=== PATIENT | male | born 1955 | race Caucasian/White ===

== ENCOUNTER 2017-12-08 17:54 | Emergency (ER) | payer OTHER ==
--- NOTE | 2017-12-08 18:20 | PDOC ---
History of Present Illness - General History Source: Patient Exam Limitations: No Limitations - History of Present Illness Initial Comments: 12/08/17 18:43 The patient is a 62 year old male with a significant past medical history of prosthetic aortic valve and dual chamber pacemaker who was sent to the ED by his group therapy counselor for evaluation. Patient states he currently has a febrile illness with an associated cough for 3 days. Patient states the highest recorded temp was 101.4 F 2 days ago. He also reports a headache localized in the back of his head associated with present symptoms. He was assessed by his group therapy counselor earlier today who felt that he heard a new murmur. Napkin Band Wrapper requested patient to come into the ED for Chest XRay, CBC, blood cultures and ESR. Patient states he was recently outdoors and [place] where he got bitten by bugs. Patient also states his friend has similar febrile symptoms. Denies chest pain or shortness of breath. Denies rash. Denies nausea, vomiting, or diarrhea. Denies any other symptoms. Napkin Band Wrapper: Dr. Jorge A Cox <Jeffrey Stinson - Last Filed: 12/08/17 18:43> - General History Source: Patient Exam Limitations: No Limitations <Vanesa Kaur - Last Filed: 12/09/17 20:10> - General Chief Complaint: Cold Symptoms Stated Complaint: FEVER Time Seen by Provider: 12/08/17 18:19 Past History <Jeffrey Stinson - Last Filed: 12/08/17 18:43> <Vanesa Kaur - Last Filed: 12/09/17 20:10> - Past Medical History Allergies/Adverse Reactions: Allergies Allergy/AdvReac Type Severity Reaction Status Date / Time levofloxacin [From Levaquin] Allergy Fever Verified 12/08/17 17:56 Home Medications: Ambulatory Orders Aspirin [Aspirin Ec] 81 mg PO DAILY 01/27/17 Omeprazole 20 mg PO DAILY 01/27/17 Allopurinol 300 mg PO DAILY 12/08/17 Ramipril 1.25 mg PO DAILY 12/08/17 Review of Systems - Review of Systems Able to Perform ROS?: Yes Comments:: 12/08/17 18:43 CONSTITUTIONAL: + fever, headache Absent: diaphoresis, generalized weakness, malaise, loss of appetite HEENT: Absent: rhinorrhea, nasal congestion, throat pain, throat swelling, difficulty swallowing, mouth swelling, ear pain, eye pain, visual Changes CARDIOVASCULAR: Absent: chest pain, syncope, palpitations, irregular heart rate, lightheadedness , peripheral edema RESPIRATORY: + cough Absent: shortness of breath, dyspnea with exertion, orthopnea, wheezing, stridor , hemoptysis GASTROINTESTINAL: Absent: abdominal pain, abdominal distension, nausea, vomiting, diarrhea, constipation, melena, hematochezia GENITOURINARY: Absent: dysuria, frequency, urgency, hesitancy, hematuria, flank pain, genital pain MUSCULOSKELETAL: Absent: myalgia, arthralgia, joint swelling SKIN: Absent: rash, itching, pallor HEMATOLOGIC/IMMUNOLOGIC: Absent: easy bleeding, easy bruising, lymphadenopathy, frequent infections ENDOCRINE: Absent: unexplained weight gain, unexplained weight loss, heat intolerance, cold intolerance NEUROLOGIC: Absent: headache, focal weakness or paresthesias, dizziness, unsteady gait, seizure, mental status changes, bladder or bowel incontinence PSYCHIATRIC: Absent: anxiety, depression, suicidal or homicidal ideation, hallucinations. All Other Systems: Reviewed and Negative <Jeffrey Stinson - Last Filed: 12/08/17 18:43> *Physical Exam - Vital Signs Last Vital Signs Temp Pulse Resp BP Pulse Ox 99.5 F 78 20 128/94 100 12/08/17 17:55 12/08/17 17:55 12/08/17 17:55 12/08/17 17:55 12/08/17 17:55 - Physical Exam Comments: 12/08/17 18:43 GENERAL: Well developed, well nourished. Awake and alert. No acute distress. HEENT: Normocephalic, atraumatic. PERRLA, EOMI. No conjunctival pallor. Sclera are non- icteric. Moist mucous membranes. Oropharynx is clear. NECK: Supple. Full ROM. No JVD. Carotid pulses 2+ and symmetric, without bruits. No thyromegaly. No lymphadenopathy. CARDIOVASCULAR: Regular rate and rhythm. + Systolic murmur 3/6 aortic position with radiation to the carotids. No rubs or gallops. Distal pulses are 2+ and symmetric. PULMONARY: No evidence of respiratory distress. Lungs clear to auscultation bilaterally. No wheezing, rales or rhonchi. ABDOMINAL: + Multiple well healed surgical scars Soft. Non-tender. Non-distended. No rebound or guarding. No organomegaly. Normoactive bowel sounds. MUSCULOSKELETAL Normal range of motion at all joints. No bony deformities or tenderness. No CVA tenderness. EXTREMITIES: No cyanosis. No clubbing. No edema. No calf tenderness. SKIN: Warm and dry. Normal capillary refill. No rashes. No jaundice. NEUROLOGICAL: Alert, awake, appropriate. Cranial nerves 2-12 intact. No deficits to light touch and temperature in face, upper extremities and lower extremities. No motor deficits in the in face, upper extremities and lower extremities. Normoreflexic in the upper and lower extremities. Normal speech. Toes are down- going bilaterally. Gait is normal without ataxia. PSYCHIATRIC: Cooperative. Good eye contact. Appropriate mood and affect. <Jeffrey Stinson - Last Filed: 12/08/17 18:43> ED Treatment Course - LABORATORY CBC & Chemistry Diagram: 12/08/17 18:23 12/08/17 18:45 - RADIOLOGY Radiology Studies Ordered: Category Date Time Status CHEST PA & LAT [RAD] Stat Radiology 12/08/17 18:19 Ordered <Vanesa Kaur - Last Filed: 12/09/17 20:10> Medical Decision Making - Medical Decision Making 12/09/17 20:04 Mr Pascual is a 62 yo M who presents to the ER upon the recommendation of his Napkin Band Wrapper Briefly, he had a prior aortic valve replacement and PPM He has had a febrile illness for the past 3 days His group therapy counselor believes he hears a new murmur and is worried about endocarditis He is requesting that we do CBC, CMP, Blood cultures, ESR/CRP, CXR All testing ordered Pt requesting to go home His pmd will be contacted by Dr Whitlock when labs are resulted <Vanesa Kaur - Last Filed: 12/09/17 20:10> *DC/Admit/Observation/Transfer - Attestations Scribe Attestion: 12/08/17 18:43 Documentation prepared by Jeffrey Stinson, acting as medical delivery driver for Vanesa Kaur MD <Jeffrey Stinson - Last Filed: 12/08/17 18:43> - Discharge Dispostion Decision to Admit order: No <Vanesa Kaur - Last Filed: 12/09/17 20:10> Diagnosis at time of Disposition: Febrile illness, acute - Discharge Dispostion Disposition: HOME Condition at time of disposition: Stable - Patient Instructions Printed Discharge Instructions: DI for Fever (Symptom) -- Adult
[2017-12-08 18:30] VITALS: BP 128/94; PULSE 78; TEMP 99.5; BMI 25.4
[2017-12-08 18:57] LABS: HEMATOCRIT 45.1 % (35.4-49); HEMOGLOBIN 15.4 GM/dl (11.7-16.9); MCH 31.4 pg (25.7-33.7); MCHC 34.1 g/dl (32.0-35.9); MEAN PLT VOLUME 8.2 fl (7.5-11.1); PLATELET COUNT 100 K/MM3 (134-434); RDW 13.4 % (11.9-15.9); WHITE BLOOD COUNT 5.9 K/mm3 (4.0-10.8)
[2017-12-08 19:10] LABS: ALBUMIN 3.7 g/dl (3.5-5.0); ALK PHOS 64 U/L (32-92); ANION GAP 5 (8-16); BLOOD UREA NITROGEN 26 mg/dl (7-18); CALCIUM 8.8 mg/dl (8.4-10.2); CHLORIDE 102 mmol/L (98-107); CO2 24 mmol/L (22-28); CREATININE 1.2 mg/dl (0.6-1.3); GLUCOSE,RANDOM 101 mg/dl (74-106); POTASSIUM 3.7 mmol/L (3.5-5.1); SGOT/AST 24 U/L (10-42); SGPT/ALT 22 U/L (10-40); SODIUM 131 mmol/L (136-145); TOT PROT 7.2 g/dl (6.4-8.3)
[2017-12-08 19:43] LABS: PLATELET ESTIMATE SLT DECREASE
[2017-12-08 19:46] LABS: ERYTHROCYTE SEDIMENTATION RATE 30 mm/hr (0-20)
--- NOTE | 2017-12-14 14:28 | PDOC ---
*Physical Exam - Vital Signs Last Vital Signs Temp Pulse Resp BP Pulse Ox 99.5 F 78 20 128/94 100 12/08/17 17:55 12/08/17 17:55 12/08/17 17:55 12/08/17 17:55 12/08/17 17:55 ED Treatment Course - LABORATORY CBC & Chemistry Diagram: 12/08/17 18:23 12/08/17 18:45 - ADDITIONAL ORDERS Additional order review: 12/08/17 19:02 Blood Culture - Final Blood - Peripheral Venous NO GROWTH AFTER 5 DAYS INCUBATION 12/08/17 18:45 Blood Culture - Final Blood - Peripheral Venous NO GROWTH AFTER 5 DAYS INCUBATION 12/08/17 18:23 RBC 4.90 MCV 92.0 MCHC 34.1 RDW 13.4 MPV 8.2 Neutrophils % No Result Required. Lymphocytes % No Result Required. 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 We reached out and discussed the case with the patient's primary care provider Dr. Banks who is aware of the test results and will contact the patient for follow up and treatment. *DC/Admit/Observation/Transfer Diagnosis at time of Disposition: Febrile illness, acute - Discharge Dispostion Disposition: HOME Condition at time of disposition: Stable - Referrals - Patient Instructions Printed Discharge Instructions: DI for Fever (Symptom) -- Adult - Post Discharge Activity
--- NOTE | 2017-12-18 20:15 | EKG ---
Test Reason : Blood Pressure : / mmHG Vent. Rate : 078 BPM Atrial Rate : 078 BPM P-R Int : 196 ms QRS Dur : 098 ms QT Int : 390 ms P-R-T Axes : 040 -36 040 degrees QTc Int : 444 ms NORMAL SINUS RHYTHM LEFT AXIS DEVIATION ABNORMAL ECG NO PREVIOUS ECGS AVAILABLE Confirmed by MD ELVIN, HU ([id number]) on 12/18/2017 8:14:33 PM Referred By: MD HARRIS Confirmed By:HU OCONNOR MD
== END 2017-12-08 19:09 | disposition home or self-care (01) ==
LOC: FER 17:54
DX: R50.9 Fever, unspecified (principal); Z95.0 Presence of cardiac pacemaker; Z95.2 Presence of prosthetic heart valve
CPT/HCPCS: 36415; 71046-TC-FY; 80053; 85025; 85651; 87040; 87798; 93005; 93010; 99282-25

== ENCOUNTER → 2018-02-23 | Day surgery (SDC) | payer OTHER ==
[~2018-02-23] MED LIST: GLUCAGON 1 MG KIT IVPUSH ONE; GLUCAGON 1 MG KIT ONE; LIDOCAINE HCL 2% JELLY (5 ML/TUBE) ONE; LIDOCAINE HCL/PF 2% SDV 5ML VIAL ONE; MIDAZOLAM HCL 2 MG/2 ML SINGLE DOSE VIAL ONE; ONDANSETRON 4 MG/2 ML VIAL IVPUSH PRN; PROMETHAZINE HCL 25 MG/1 ML VIAL IVPUSH PRN; PROPOFOL 20 ML ONE; ROCURONIUM BROMIDE 50 MG/5 ML VIAL ONE; SUCCINYLCHOLINE CHLORIDE 200 MG/10 ML VIAL ONE; ePHEDrine SULFATE 50 MG/1 ML AMPULE ONE; oxyCODONE HCL 5 MG TABLET PO PRN
--- NOTE | 2018-02-23 13:43 | PDOC ---
History of Present Illness <Erwin Cruz S - Last Filed: 02/23/18 17:53> - History of Present Illness Initial Comments: 02/23/18 13:40 62 year old man with past medical history of prosthetic aortic valve and dual chamber pacemaker who presents with choking sensation and "food stuck in his esophagus" and inability to swallow or drink water that occurred just prior to arrival. He denies difficulty breathing, is able to speak without difficulty and is without voice changes per . He has no other complaints at bedside. Denies chest pain, shortness of breath, abdominal pain, headache, loss of consciousness, recent illness, fever. PMHX: as in HPI PSHX: see below and in HPI Meds: see below Allergies: levofloxacin Tob: none Etoh: none Rec drugs: none <Janet Verma - Last Filed: 02/23/18 18:09> - General Chief Complaint: Choking Sensation Stated Complaint: FOOD IN THROAT Attending Attestation - Resident Resident Name: Janet Verma - ED Attending Attestation I have performed the following: I have examined & evaluated the patient, The case was reviewed & discussed with the resident, I agree w/resident's findings & plan, Exceptions are as noted - HPI HPI: Patient arrived in ambulating with after swallowing a piece of food which got stuck into his throat, unable to pass it down, no trouble breathing 02/23/18 14:53 - Physicial Exam PE: Alert, oriented x3, very uncomfortable, saliva drooling, trying yto induce vomiting, no respiratory distress 02/23/18 14:56 - Medical Decision Making iv fluids, Glucagon iv , called GI consult, discussed with Dr Cervantes. No response to medication, anesthesia here , Dr Cervantes take patient to OR 02/23/18 14:57 <Erwin Cruz S - Last Filed: 02/23/18 17:53> Past History <Erwin Cruz S - Last Filed: 02/23/18 17:53> - Past Medical History COPD: No - Surgical History Cardiac Surgery: Yes (BOVINE AORTIC VALVE, PACE MAKER) - Suicide/Smoking/Psychosocial Hx Smoking History: Never smoked Have you smoked in the past 12 months: No Hx Alcohol Use: No Drug/Substance Use Hx: No Substance Use Type: None <Janet Verma Last Filed: 02/23/18 18:09> - Past Medical History Allergies/Adverse Reactions: Allergies Allergy/AdvReac Type Severity Reaction Status Date / Time levofloxacin [From Levaquin] Allergy Fever Verified 12/08/17 17:56 Home Medications: Ambulatory Orders Aspirin [Aspirin Ec] 81 mg PO DAILY 01/27/17 Omeprazole 20 mg PO DAILY 01/27/17 Allopurinol 300 mg PO DAILY 12/08/17 Review of Systems - Review of Systems Able to Perform ROS?: Yes Is the patient limited Barbadian proficient: No Constitutional: No: Chills, Diaphoresis, Fever HEENTM: Yes: Throat Pain, Throat Swelling. No: Nose Congestion Respiratory: No: Cough, Orthopnea, Shortness of Breath Cardiac (ROS): No: Chest Pain, Lightheadedness, Chest Tightness ABD/GI: Yes: See HPI. No: Constipated, Diarrhea, Nausea, Vomiting Neurological: No: Headache, Numbness, Tingling <Janet Verma - Last Filed: 02/23/18 18:09> *Physical Exam - Vital Signs Last Vital Signs Temp Pulse Resp BP Pulse Ox 98.3 F 74 18 143/95 97 02/23/18 14:27 02/23/18 14:27 02/23/18 14:27 02/23/18 14:27 02/23/18 14:27 <Erwin Cruz S - Last Filed: 02/23/18 17:53> - Physical Exam Comments: 02/23/18 14:48 GENERAL: Awake, alert, and fully oriented, in mild distress, coughing up intermittently HEAD: No signs of trauma, normocephalic, atraumatic EYES: EOMI, sclera anicteric, conjunctiva clear ENT: oropharynx clear without exudates. Moist mucosa NECK: Normal ROM, supple LUNGS: No distress, speaks full sentences HEART: Regular rate and rhythm, normal S1 and S2, no murmurs, rubs or gallops, peripheral pulses normal and equal bilaterally. EXTREMITIES : Normal inspection, Normal range of motion, no edema. No clubbing or cyanosis. NEUROLOGICAL: Normal speech, normal gait, no focal sensorimotor deficits SKIN: Warm, Dry, normal turgor, no rashes or lesions noted <Janet Verma - Last Filed: 02/23/18 18:09> ED Treatment Course - Medications Given in the ED: ED Medications Discontinued Medications Generic Name Dose Route Start Last Admin Trade Name Braulio PRN Reason Stop Dose Admin Glucagon 10 mg 02/23/18 13:41 02/23/18 13:59 Glucagon - IVPUSH 02/23/18 13:42 Not Given ONCE ONE Glucagon 1 mg 02/23/18 13:43 02/23/18 13:50 Glucagon - IVPUSH 02/23/18 13:44 1 mg ONCE ONE Administration Glucagon 1 mg 02/23/18 14:05 02/23/18 14:07 Glucagon - IVPUSH 02/23/18 14:06 1 mg ONCE ONE Administration <Erwin Cruz S - Last Filed: 02/23/18 17:53> Medical Decision Making - Medical Decision Making 02/23/18 13:51 62 year old man with past medical history of prosthetic aortic valve and dual chamber pacemaker who presents with choking sensation and "food stuck in his esophagus" and inability to swallow or drink water that occurred just prior to arrival. 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 Pt called his anesthesiology colleagues from upstairs. Anesthesiology at bedside. They agree for trial of glucagon Dr. Helen colungaology called. He knows patient well. Plans to see patient in approx 1 hour. Patient agrees to plan. Fluid bolus started. Glucagon administered. Patient anxious but in no acute distress. spitting up intermittently. 02/23/18 14:26 Pt reassessed, ambulated to bathroom without difficulty. Glucagon redosed. Anesthesiology at bedside intermittently checking on patient. 02/23/18 14:47 Bolus did not pass with glucagon. Patient taken to OR. 02/23/18 17:55 Patient returned from PACU. Ambulating without difficulty. Stable vitals. Case discussed with Dr. Cervantes. Patient stable for discharge. Given follow up instructions and strict return precautions. Patient expressed understanding and agreed to plan. Patient unable to be formally discharged through [facility] due to prior admission order to OR. Discharge written through nursing notes. Reviewed thoroughly with patient. <Janet Verma - Last Filed: 02/23/18 18:09> *DC/Admit/Observation/Transfer - Discharge Dispostion Decision to Admit order: No <Erwin Curz - Last Filed: 02/23/18 17:53> - Discharge Dispostion Decision to Admit order: No <Janet Verma - Last Filed: 02/23/18 18:09> Diagnosis at time of Disposition: Foreign body in esophagus Qualifiers: Encounter type: initial encounter Qualified Code(s): T18.108A - Unspecified foreign body in esophagus causing other injury, initial encounter - Discharge Dispostion Disposition: HOME Condition at time of disposition: Stable
[2018-02-23 13:58] VITALS: BMI 25.4
[2018-02-23 17:49] VITALS: TEMP 97.6
--- NOTE | 2018-02-23 17:50 | PDOC ---
Attending Attestation - Resident Resident Name: Janet Verma - ED Attending Attestation I have performed the following: I have examined & evaluated the patient, The case was reviewed & discussed with the resident, I agree w/resident's findings & plan, Exceptions are as noted - HPI HPI: Patient walked in along with his , complaining that prior to arrival he swallowed a piece of chicken which wouldn't pass down Alert. oriented x 3 , ambulatory. in distress - Physicial Exam PE: Alert. ambulatory, unable to swallow fluids, no respiratory distress 03/02/18 18:46 - Medical Decision Making Attempted Blucagon iv x 2 with no effect HA Payan, called in took piece out in OR, Patient felt relieved. d/ c home thereafter 03/02/18 14:55
[2018-02-23 17:58] VITALS: BP 142/74; PULSE 65
== END | disposition home or self-care (01) ==
LOC: FER 13:26 → FASU-ENDO 15:31
PROVIDERS: ATTEND Internal Medicine Gastroenterology
PROC: 0DC18ZZ Extirpation of Matter from Upper Esophagus, Via Natural or Artificial Opening Endoscopic (ICD-10-PCS; principal; 2018-02-23 15:21)
DX: T18.128A Food in esophagus causing other injury, initial encounter (principal); X58.XXXA Exposure to other specified factors, initial encounter; Y93.89 Activity, other specified; Y92.9 Unspecified place or not applicable
CPT/HCPCS: 94760; 99283-25

== ENCOUNTER 2023-01-10 15:30 | Emergency (ER) | payer OTHER, MEDICARE ==
[2023-01-10 15:52] VITALS: BP 131/71; PULSE 79; RESP 20; TEMP 98.2; BMI 25.8
[2023-01-10] MEDS ORDERED: RABIES IMMUNE GLOBULIN 300 UNITS/1 ML VIAL IM ONE (16:22)
[2023-01-10] MEDS ORDERED: RABIES VACCINE (PCEC)/PF 2.5 UNIT/VIAL IM ONE ×2 (16:22→16:30)
[2023-01-10] MEDS ORDERED: RABIES IMMUNE GLOBULIN 300 UNITS/1 ML VIAL ONE (16:30)
== END 2023-01-10 17:52 | disposition home or self-care (01) ==
LOC: FER 15:30
PROC: 3E0234Z Introduction of Serum, Toxoid and Vaccine into Muscle, Percutaneous Approach (ICD-10-PCS; principal; 2023-01-10)
DX: Z29.14 Encounter for prophylactic rabies immune globulin (principal)
CPT/HCPCS: 90375; 90675; 99282-25

== ENCOUNTER 2023-01-13 09:44 | Emergency (ER) | payer OTHER, MEDICARE ==
[2023-01-13 09:52] VITALS: BP 106/74; PULSE 54; RESP 18; TEMP 97.9; BMI 25.8
[2023-01-13] MEDS ORDERED: RABIES VACCINE (PCEC)/PF 2.5 UNIT/VIAL IM ONE ×2 (09:52→10:02)
== END 2023-01-13 10:15 | disposition home or self-care (01) ==
LOC: FER 09:44
PROC: 3E0234Z Introduction of Serum, Toxoid and Vaccine into Muscle, Percutaneous Approach (ICD-10-PCS; principal; 2023-01-13)
DX: Z29.14 Encounter for prophylactic rabies immune globulin (principal)
CPT/HCPCS: 90675; 99282-25